=== PATIENT | male | born 1970 | race African-American/Black ===

== ENCOUNTER 2017-05-09 17:48 | Emergency (ER) | payer MEDICAID ==
[~2017-05-09] VITALS: Ht 188 cm; Wt 96.0 kg
[~2017-05-09 17:48] MED LIST: ALPR-340 PO; AMOX1TAB15 PO; CARI350T27 PO; DIVA250T45 PO; DULO60CA63 PO; GABA-290 PO
[2017-05-10 02:00] VITALS: BP 137/90
== END 2017-05-10 02:00 | disposition home or self-care (01) ==
LOC: ER 17:48
DX: S39.012A Strain of muscle, fascia and tendon of lower back, initial encounter (principal); G89.29 Other chronic pain; I10 Essential (primary) hypertension; F31.9 Bipolar disorder, unspecified; F17.210 Nicotine dependence, cigarettes, uncomplicated; Z98.1 Arthrodesis status; X50.0XXA Overexertion from strenuous movement or load, initial encounter; Y93.89 Activity, other specified; Y92.89 Other specified places as the place of occurrence of the external cause; Y99.8 Other external cause status
CPT/HCPCS: 99283; Z7610

== ENCOUNTER 2017-06-01 10:39 | Emergency (ER) | payer MEDICAID ==
[~2017-06-01] VITALS: Ht 185.4 cm; Wt 100.0 kg
[2017-06-01] MEDS ORDERED: KETOROLAC 30MG/ML VIAL IM ONE (11:15)
[2017-06-01] MEDS ORDERED: HYDROCODONE/ACETAMINOPHEN 5/325MG TABLET PO ONE (11:15)
[2017-06-01 11:39] VITALS: BP 148/78
== END 2017-06-01 11:42 | disposition home or self-care (01) ==
LOC: ER 10:49
DX: M54.5 Low back pain (principal); G89.29 Other chronic pain; F31.9 Bipolar disorder, unspecified; I10 Essential (primary) hypertension; F17.210 Nicotine dependence, cigarettes, uncomplicated
CPT/HCPCS: 96372; 99283; J1885

== ENCOUNTER 2021-03-30 08:36 | Emergency (ER) | payer MEDICAID ==
[~2021-03-30 08:36] MED LIST changes: -DULO60CA63 PO; +DULO60CA64 PO
== END 2021-03-30 09:19 | disposition left against medical advice (07) ==
LOC: ER 08:36
DX: Z53.21 Procedure and treatment not carried out due to patient leaving prior to being seen by health care provider (principal)

== ENCOUNTER 2021-11-10 18:10 | Emergency (ER) | payer MEDICAID ==
[~2021-11-10] VITALS: Ht 188 cm; Wt 82.0 kg
[2021-11-10] MEDS ORDERED: ASPIRIN 325MG EC TABLET PO ONE (19:00)
[2021-11-10] MEDS ORDERED: MAGNESIUM/ALUMINUM HYDROXIDE/SIMETHICONE 30ML UDC PO NR (19:15)
[2021-11-10] MEDS ORDERED: VISCOUS LIDOCAINE 2% 15 ML UDC MM NR (19:15)
[2021-11-10 20:11] LABS: BASOPHILS % 0.9 % (0.0-2.0); EOSINOPHILS % 1.3 % (0.0-5.0); HEMATOCRIT. 31.8 % (42.0-52.0); HEMOGLOBIN. 10.8 g/dL (14.0-18.0); LYMPHOCYTES % 17.9 % (20.0-50.0); MEAN CORPUSCULAR HEMOGLOBIN 30.6 pg (28.0-32.0); MEAN PLATELET VOLUME 7.1 fl (7.4-10.4); MONOCYTES % 7.6 % (2.0-8.0); NEUTROPHILS % 72.3 % (40.0-76.0); PLATELET 322 x1000/uL (130-400); RED BLOOD CELL COUNT 3.53 mill/uL (4.7-6.1); RED CELL DISTRIBUTION WIDTH 14.6 % (11.6-14.6)
[2021-11-10 20:13] LABS: CHLORIDE 107 mEq/L (98-107)
[2021-11-10 20:17] LABS: ETHANOL BLOOD 17 mg/dL
[2021-11-10] MEDS ORDERED: ASPIRIN 325MG EC TABLET PO NR (20:30)
[2021-11-10] MEDS ORDERED: HYDROCODONE/ACETAMINOPHEN 5/325MG TABLET PO NR (20:30)
[2021-11-10] MEDS ORDERED: MAG355OR21 MT (20:50)
[2021-11-10] MEDS ORDERED: PROT40 MT (20:50)
[2021-11-10 21:04] VITALS: BP 164/82
== END 2021-11-10 21:11 | disposition home or self-care (01) ==
LOC: ER 18:10
DX: R07.89 Other chest pain (principal); F10.229 Alcohol dependence with intoxication, unspecified; I10 Essential (primary) hypertension; Y90.0 Blood alcohol level of less than 20 mg/100 ml; F17.290 Nicotine dependence, other tobacco product, uncomplicated; F12.10 Cannabis abuse, uncomplicated; Z79.899 Other long term (current) drug therapy
CPT/HCPCS: 36415; 71045; 80053; 80320; 83880; 84484; 85025; 93005; 93970; 99285; G0480

== ENCOUNTER 2023-08-02 09:54 | Emergency (ER) | payer MEDICAID ==
[~2023-08-02] VITALS: Ht 190.5 cm; Wt 100.0 kg
[~2023-08-02 09:54] MED LIST changes: +MAG355OR21 MT; +PROT40 MT
[2023-08-02 10:09] VITALS: BP 152/103; PULSE 85; RESP 16; TEMP 98.7; O2SAT 97
[2023-08-02] MEDS ORDERED: KETOROLAC 30MG/ML VIAL IM ONE (11:00)
== END 2023-08-02 13:31 | disposition left against medical advice (07) ==
LOC: ER 10:12
DX: S30.861A Insect bite (nonvenomous) of abdominal wall, initial encounter (principal); I10 Essential (primary) hypertension; F12.10 Cannabis abuse, uncomplicated; Z79.899 Other long term (current) drug therapy; W57.XXXA Bitten or stung by nonvenomous insect and other nonvenomous arthropods, initial encounter; Y93.89 Activity, other specified; Y92.89 Other specified places as the place of occurrence of the external cause; Y99.8 Other external cause status
CPT/HCPCS: 99281

== ENCOUNTER 2024-04-04 08:54 | Emergency (ER) | payer MEDICAID ==
[~2024-04-04] VITALS: Ht 185.4 cm; Wt 100.0 kg
[2024-04-04 09:10] VITALS: O2SAT 98
[2024-04-04] MEDS ORDERED: LIDO700A15 TP (13:06)
[2024-04-04] MEDS ORDERED: IBUP-2028 MT (13:06)
[2024-04-04] MEDS ORDERED: TOPUD PO (13:06)
[2024-04-04] MEDS ORDERED: METH-653 MT (13:06)
[2024-04-04] MEDS: KETOROLAC 30MG/ML VIAL IM ONE (13:20)
[2024-04-04] MEDS: ACETAMINOPHEN 325MG TABLET PO ONE (13:20)
[2024-04-04 13:23] VITALS: BP 155/92; PULSE 62; RESP 16; TEMP 37.05852; O2SAT 98
== END 2024-04-04 13:24 | disposition home or self-care (01) ==
LOC: ER 08:54
DX: M25.561 Pain in right knee (principal); I10 Essential (primary) hypertension; F12.90 Cannabis use, unspecified, uncomplicated; F10.20 Alcohol dependence, uncomplicated; Z79.899 Other long term (current) drug therapy; Y90.9 Presence of alcohol in blood, level not specified
CPT/HCPCS: 99285; 70450; 73030; 73562; 73630; 72125; 96372; J1885

== ENCOUNTER 2025-03-30 19:05 | Emergency (ER) | payer MEDICAID ==
[~2025-03-30] VITALS: Ht 182.9 cm; Wt 91.0 kg
[~2025-03-30 19:05] MED LIST changes: +CARI-517 PO; -CARI350T27 PO; +IBUP-2028 MT; +LIDO-53 TP; +METH-653 MT; +TOPUD PO
[2025-03-30 19:06] VITALS: O2SAT 99
[2025-03-30 19:23] VITALS: TEMP 37.2; O2SAT 99
[2025-03-30] MEDS ORDERED: IBUP-1455 MT (21:48)
[2025-03-30] MEDS ORDERED: CEPH500C2 MT (21:48)
[2025-03-30] MEDS ORDERED: SULF1TAB48 MT (21:48)
[2025-03-30 22:11] VITALS: BP 126/81; PULSE 69; RESP 16
[2025-03-30] MEDS: HYDROCODONE/ACETAMINOPHEN 5/325MG TABLET PO ONE (22:11)
== END 2025-03-30 22:36 | disposition home or self-care (01) ==
LOC: ER 19:05
DX: L02.91 Cutaneous abscess, unspecified (principal); I10 Essential (primary) hypertension; F12.90 Cannabis use, unspecified, uncomplicated; Z79.899 Other long term (current) drug therapy
CPT/HCPCS: 99283